=== PATIENT | male | born 1970 | race Caucasian/White ===

== ENCOUNTER 2019-07-23 16:17 | Outpatient (CLI) | payer BC, SELFPAY ==
--- NOTE | ~2019-07-23 | XR_ITS ---
XR chest 2V DATE: 07/23/2019 16:44 INDICATION: Dyspnea TECHNIQUE: PA and lateral views COMPARISON: None FINDINGS: Normal heart size. No hilar or mediastinal enlargement. No pulmonary infiltrate or consolid ation, pleural effusion or pulmonary vascular congestion or pneumothorax. There is mild degenerative spurring of the thoracic spine. IMPRESSION: No active cardiopulmonary disease Reviewed, dictated and finalized at location A.
== END 2019-07-23 16:18 | disposition home or self-care (01) ==
LOC: ANHIMG 16:20
PROVIDERS: PCP Internal Medicine; Visit Provider Internal Medicine
DX: R06.00 Dyspnea, unspecified (principal); R69 Illness, unspecified
CPT/HCPCS: 71046

== ENCOUNTER → 2020-11-26 03:21 | Outpatient (CLI) | payer BC, SELFPAY ==
[2020-11-27 04:02] LABS: SARS-CoV-2 RNA PCR Negative
== END ==
PROVIDERS: PCP Internal Medicine; Visit Provider Internal Medicine
DX: R68.89 Other general symptoms and signs (principal); Z20.822 Contact with and (suspected) exposure to COVID-19
CPT/HCPCS: C9803; U0003; U0005

== ENCOUNTER → 2021-02-04 08:38 | Outpatient (CLI) | payer BC, SELFPAY ==
[2021-02-04 16:43] LABS: SARS-CoV-2 RNA PCR Positive
== END ==
PROVIDERS: PCP Internal Medicine; Visit Provider Internal Medicine
DX: U07.1 COVID-19 (principal)
CPT/HCPCS: C9803; U0003; U0005

== ENCOUNTER 2021-02-04 14:19 | Outpatient (RCR) | payer BC, SELFPAY ==
[2021-02-04] MEDS: diphenhydrAMINE HCl CAP 25 MG CAPSULE PO (14:46)
[2021-02-04] MEDS: FAMOTIDINE 20 MG TABLET PO (14:46)
[2021-02-04] MEDS: ACETAMINOPHEN 325 MG TABLET 650 MG PO (14:46)
[2021-02-04 14:54] VITALS: BP 160/79; PULSE 83; RESP 18; TEMP 36.4; O2SAT 99
[2021-02-04 16:13] VITALS: BP 144/71
--- NOTE | 2021-02-07 10:57 | PC.NURSE ---
Patient's states that he is feeling fine after his covid treatment.
== END 2021-02-04 15:48 | disposition home or self-care (01) ==
LOC: AMCINF 14:19
PROVIDERS: PCP Internal Medicine; Referring Provider Internal Medicine; Visit Provider Internal Medicine Hematology & Oncology
DX: Z23 Encounter for immunization (principal); U07.1 COVID-19
CPT/HCPCS: A9270; M0243; Q0243

== ENCOUNTER 2021-06-09 11:45 | Outpatient (CLI) | payer BC, SELFPAY ==
--- NOTE | ~2021-06-09 | XR_ITS ---
EXAMINATION: XR chest 2V 06/09/2021 11:59 INDICATION: Cough PROCEDURE: 2 view chest COMPARISON: 07/23/2019 FINDINGS: The lungs are clear. The cardiomediastinal silhouette is within normal limits. There are no pleural effusions. There is no pneumothorax suspected. IMPRESSION: 1: NO ACUTE CARDIOPULMONARY DISEASE. Reviewed, dictated and finalized at location B. ICAL INSTRUMENT TECHNICIAN
== END 2021-06-09 11:46 | disposition home or self-care (01) ==
LOC: ANHIMG 11:49
PROVIDERS: PCP Internal Medicine; Visit Provider Internal Medicine
DX: R05.9 Cough, unspecified (principal); R06.00 Dyspnea, unspecified
CPT/HCPCS: 71046

== ENCOUNTER → 2021-06-10 02:22 | Outpatient (CLI) | payer BC, SELFPAY ==
[2021-06-10 17:14] LABS: SARS-CoV-2 RNA PCR Negative
== END ==
PROVIDERS: PCP Internal Medicine; Visit Provider Internal Medicine
DX: R05.9 Cough, unspecified (principal); R06.00 Dyspnea, unspecified; Z20.822 Contact with and (suspected) exposure to COVID-19
CPT/HCPCS: C9803; U0003; U0005

== ENCOUNTER → 2021-08-09 02:02 | Outpatient (CLI) | payer BC, SELFPAY ==
[2021-08-09 11:58] LABS: SARS-CoV-2 RNA PCR Negative
== END ==
PROVIDERS: PCP Internal Medicine; Visit Provider Internal Medicine
DX: R05.9 Cough, unspecified (principal); Z20.822 Contact with and (suspected) exposure to COVID-19
CPT/HCPCS: C9803; U0003; U0005

== ENCOUNTER → 2022-01-16 08:08 | Outpatient (CLI) | payer BC, SELFPAY ==
--- NOTE | ~2022-01-16 | US_ITS ---
US abdomen limited INDICATION: Jaundice PROCEDURE: Realtime right upper abdominal ultrasound. COMPARISON: No prior studies for comparison. FINDINGS: The pancreas is normal without focal mass or pancreatic ductal dilation. Increased liver e chotexture, consistent with fatty infiltration. There is normal directional flow in the portal vein. The gallbladder is normal without stones, gallbladder wall thickening or pericholecystic fluid. Comm on bile duct measures 4 mm. No sonographic Linton's sign. IMPRESSION: 1: Hepatic steatosis. Reviewed, dictated and finalized at location A. IMPRESSION: 1: Hepatic steatosis.
== END ==
PROVIDERS: PCP Internal Medicine; Visit Provider Internal Medicine
DX: K76.0 Fatty (change of) liver, not elsewhere classified (principal)
CPT/HCPCS: 76705

== ENCOUNTER 2022-07-10 00:49 | Day surgery (SDC) | payer BC, SELFPAY ==
[2022-06-27 13:22] VITALS: BMI 28.5
--- NOTE | 2022-07-07 13:59 | PM.HPGS ---
History of Present Illness History of Present Illness Consent: Risks, benefits, and alternatives have been discussed and questions answered. Patient agrees to proceed with procedure. Chief complaint: hx colon polyps, family hx colon ca Narrative: Alo Reina is a 51 year old male Who has history of polyps. Actually 5 years ago he was noted to have a somewhat prominent ileocecal valve, biopsies which showed adenomatous changes. A follow-up 1 year later revealed a small adenoma in the ascending colon. That 1 was removed. Review of Systems Review of Systems: All systems reviewed & are unremarkable except as noted in HPI and below PMFSH Past Medical History Medical History BMI 29.0-29.9,adult BMI 31.0-31.9,adult Cervicalgia Chest pain Cough Dyspnea Elevated coronary artery calcium score Encounter for long-term current use of medication Encounter for physical examination of prospective adoptive parent Encounter for preventive health examination Encounter for routine adult health examination with abnormal findings Erectile dysfunction Exposure to COVID-19 virus Family history of [place] (myocardial infarction) FHx: type 2 diabetes mellitus Hx of colonic polyps 2019 Mixed hyperlipidemia Need for influenza vaccination On intermodal truck driver drug therapy Onychomycosis Personal history of COVID-19 Prostate cancer screening Stress Total bilirubin, elevated Vitamin D deficiency Surgical History Surgical History H/O colonoscopy 2019 Family History Family History Father Family history of malignant neoplasm Family history of cardiovascular disease Cerebrovascular accident Mother Family history of malignant neoplasm Social History Social History Smoking status: Never smoker Second hand tobacco smoke exposure: No Alcohol intake: current Drinks per week: 4 Alcohol use details: DRINKS Substance use: never Substance use type: does not use Lack of Transportation: No Lack of Food: Never True Current Housing: I Have Housing Concerned About Future Housing: No Difficulty Paying Gas/Electric Bills: No Difficulty Paying for Meds: No Currently Unemployed: No Difficulty w/ Childcare or Family Care: No Living arrangements: with family Occupation/Education: occupation Gender identity (if verbalized by the patient): Male Spiritual care concerns: No Meds Home Medications and Allergies Home Medications Medication Instructions Recorded Confirmed Type multivitamin 1 tablet PO DAILY 07/23/19 07/10/22 History sildenafil 50 mg tablet 50 mg PO DAILY PRN sexual activity 07/28/21 07/10/22 Rx #30 tabs cholecalciferol (vitamin D3) 100 100 mcg PO DAILY 06/23/22 07/10/22 History mcg (4,000 unit) tablet ascorbic acid (vitamin C) 1,000 mg 1 g PO DAILY 06/27/22 07/10/22 History tablet rosuvastatin 40 mg tablet 20 mg PO DAILY 06/27/22 07/10/22 History Allergies Allergy/AdvReac Type Severity Reaction Status Date / Time No Known Allergies Allergy Unknown Verified 07/10/22 06:47 Exam Const: General: alert Orientation/consciousness: patient oriented x3 Resp: Auscultation: clear to auscultation bilaterally Cardio: Rhythm: regular rhythm GI: GI Palp: Yes Soft to palpation and No Tenderness to palpation present (GI) Neuro: General: patient oriented x3 Assessment and Plan Assessment and plan (1) Colon cancer screening: Code(s): Z12.11 - Encounter for screening for malignant neoplasm of colon Status: Acute Assessment and Plan: Colonoscopy with possible biopsy or polypectomy or cautery or injection of substances.
[2022-07-10 06:51] VITALS: BP 129/75; PULSE 65; RESP 18; TEMP 36.1; O2SAT 99
[2022-07-10] MEDS: LACTATED RINGERS 1,000 ML 150 ML IV CONT (06:58)
--- NOTE | 2022-07-10 07:11 | WPDANESEPPF ---
Anes - Initial Pre Proc Eval Procedure: Operation Date: 07/10/22 08:00 Proposed Procedures p Colonoscopy - Farooq Baca MD Date/Time: 07/10/22 07:11 Surgeon: Farooq Baca MD Pre Op Diagnosis: hx colon polyps, family hx colon ca Patient Data Age: 51 Gender: M Height: 1.96 m Weight: 108 kg Last Vital Signs Temp 36.1 C L 07/10/22 06:51 Pulse 65 07/10/22 06:51 Resp 18 07/10/22 06:51 BP 129/75 07/10/22 06:51 Pulse Ox 99 07/10/22 06:51 O2 Del Method Room Air 07/10/22 06:51 Allergies Allergy/AdvReac Type Severity Reaction Status Date / Time No Known Allergies Allergy Unknown Verified 07/10/22 06:47 Home Medications Medication Instructions Recorded Confirmed Type multivitamin 1 tablet PO DAILY 07/23/19 07/10/22 History sildenafil 50 mg tablet 50 mg PO DAILY PRN sexual activity 07/28/21 07/10/22 Rx #30 tabs cholecalciferol (vitamin D3) 100 100 mcg PO DAILY 06/23/22 07/10/22 History mcg (4,000 unit) tablet ascorbic acid (vitamin C) 1,000 mg 1 g PO DAILY 06/27/22 07/10/22 History tablet rosuvastatin 40 mg tablet 20 mg PO DAILY 06/27/22 07/10/22 History Patient hx anesthesia problems: none Family hx anesthesia problems: none Results Review: All pre-operative results and documents have been reviewed as part of the pre-operative evaluation. [facility] Past Medical History Medical History BMI 29.0-29.9,adult BMI 31.0-31.9,adult Cervicalgia Chest pain Cough Dyspnea Elevated coronary artery calcium score Encounter for long-term current use of medication Encounter for physical examination of prospective adoptive parent Encounter for preventive health examination Encounter for routine adult health examination with abnormal findings Erectile dysfunction Exposure to COVID-19 virus Family history of [place] (myocardial infarction) FHx: type 2 diabetes mellitus Hx of colonic polyps 2019 Mixed hyperlipidemia Need for influenza vaccination 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 Onychomycosis Personal history of COVID-19 Prostate cancer screening Stress Total bilirubin, elevated Vitamin D deficiency Surgical History Surgical History H/O colonoscopy 2019 Family History Family History Father Family history of malignant neoplasm Family history of cardiovascular disease Cerebrovascular accident Mother Family history of malignant neoplasm Social History Social History Smoking status: Never smoker Second hand tobacco smoke exposure: No Alcohol intake: current Drinks per week: 4 Alcohol use details: DRINKS Substance use: never Substance use type: does not use Lack of Transportation: No Lack of Food: Never True Current Housing: I Have Housing Concerned About Future Housing: No Difficulty Paying Gas/Electric Bills: No Difficulty Paying for Meds: No Currently Unemployed: No Difficulty w/ Childcare or Family Care: No Living arrangements: with family Occupation/Education: occupation Gender identity (if verbalized by the patient): Male Spiritual care concerns: No Anes - Eval Final PreProcedure Day of Procedure 07/10/22 07:11 Patient weight: overweight Heart: regular rate and rhythm Lungs: clear to auscultation and normal air movement Airway: Mallampati scale class II Neurological: alert and oriented Last oral intake: >/= 8 hours ASA classification: II Emergent: no Anesthetic plan: proceed Anesthesia type and monitoring: general GIVS Results Review: All pre-operative results and documents have been reviewed as part of the pre-operative evaluation. Informed Consent: The patient's anesthetic plan and its attendant risks and benefits were discussed with the patient/family/POA. Questions were solicited and answers provi
[2022-07-10] MEDS: SIMETHICONE ORAL SUSPENSION 20 MG/0.3 ML 30 ML BOTTLE 0.6 ML IRRIGATION (08:06)
[2022-07-10 08:19] VITALS: BP 105/64; PULSE 70; RESP 22; O2SAT 99
[2022-07-10 08:29] VITALS: BP 118/77; PULSE 66; RESP 21; O2SAT 99
[2022-07-10 08:39] VITALS: BP 111/78; PULSE 61; RESP 25; O2SAT 99
== END 2022-07-10 08:45 | disposition home or self-care (01) ==
PROVIDERS: PCP Internal Medicine; Visit Provider Internal Medicine Gastroenterology
PROC: 0DJD8ZZ Inspection of Lower Intestinal Tract, Via Natural or Artificial Opening Endoscopic (ICD-10-PCS; CPT 45378; principal; 2022-07-10 08:00)
DX: Z12.11 Encounter for screening for malignant neoplasm of colon (principal); Z86.010 Personal history of colon polyps; Z80.0 Family history of malignant neoplasm of digestive organs; E78.2 Mixed hyperlipidemia; E55.9 Vitamin D deficiency, unspecified
CPT/HCPCS: 45378; J2704; J7120

== ENCOUNTER 2024-01-08 11:18 | Outpatient (CLI) | payer BC, SELFPAY ==
[2024-01-08 12:27] LABS: Influenza A QL RT-PCR Negative (Negative); Influenza B QL RT-PCR Negative (Negative); RSV RNA, RT-PCR Negative (Negative); SARS-CoV-2 RNA PCR Negative (Negative)
== END 2024-01-08 11:19 | disposition home or self-care (01) ==
LOC: ANHLAB 11:20
PROVIDERS: PCP Internal Medicine; Visit Provider Internal Medicine
DX: R05.9 Cough, unspecified (principal); R50.9 Fever, unspecified; Z20.822 Contact with and (suspected) exposure to COVID-19
CPT/HCPCS: 87637

== ENCOUNTER 2024-01-11 07:53 | Outpatient (CLI) | payer BC, SELFPAY ==
--- NOTE | ~2024-01-11 | XR_ITS ---
XR chest 2V 01/11/2024 08:03 Indication: Cough and fever Procedure: 2 view chest Comparison: Comparison to multiple prior studies sequentially, with oldest reviewed study dated 06/09. Findings: There is lingular pneumonia. No pleural effusion. Heart size normal. Right lung clear. No p neumothorax or edema. No acute osseous abnormality. Impression: 1: Lingular pneumonia. Reviewed, dictated and finalized at location B. Impression: 1: Lingular pneumonia.
== END 2024-01-11 07:54 | disposition home or self-care (01) ==
PROVIDERS: PCP Internal Medicine; Visit Provider Internal Medicine
DX: J18.9 Pneumonia, unspecified organism (principal)
CPT/HCPCS: 71046

== ENCOUNTER 2024-02-14 09:02 | Outpatient (CLI) | payer BC, SELFPAY ==
--- NOTE | ~2024-02-14 | XR_ITS ---
[id number] Ordering provider: Patric Foy MD History: . M79.672 - Pain in left foot X 3 WEEKS . Comparison: None. FINDINGS: BONES: No acute fracture or dislocation. Calcaneus spur. Ossification of the insertion of the tendo Achilles. No flatfoot is seen. Joint spaces: Slight Narrowing of the proximal and distal interphalangeal joints. No tarsal coalition . SOFT TISSUES: Normal. IMPRESSION: No acute osseous abnormality left foot. Reviewed, dictated and finalized at location A.
== END 2024-02-14 09:03 | disposition home or self-care (01) ==
LOC: ANHIMG 09:15
PROVIDERS: PCP Internal Medicine; Visit Provider Internal Medicine
DX: M79.672 Pain in left foot (principal)
CPT/HCPCS: 73630